=== PATIENT | female | born 1980 | race American Indian/Alaskan Native ===

== ENCOUNTER 2017-05-28 | Emergency (ER) | payer MEDICAID ==
[2017-05-28 00:08] VITALS: BP 142/93
== END 2017-05-28 03:15 | disposition left against medical advice (07) ==
LOC: ED
DX: N76.4 Abscess of vulva (principal); J45.909 Unspecified asthma, uncomplicated; I10 Essential (primary) hypertension; Z53.21 Procedure and treatment not carried out due to patient leaving prior to being seen by health care provider

== ENCOUNTER 2018-07-07 01:21 | Emergency (ER) | payer MEDICAID ==
[2018-07-07 03:24] LABS: HCG Qualitative,Urine Negative (Negative)
[2018-07-07 03:47] LABS: Bacteria,Urine 4+ /HPF (Negative); Bilirubin,Urine NEG (Negative); Blood,Urine SM (Negative); Color,Urine Yellow (Yellow); Mucus,Urine FEW /HPF
[2018-07-07 03:48] LABS: WBC,Urine > 182.0 /HPF (0.0-6.0)
[2018-07-07] MEDS ORDERED: ROCEPHIN/NS 1 GM/50 ML 1 GM/50 ML BAG IV ONE (05:44)
[2018-07-07] MEDS ORDERED: NACL 0.9% 1000 ML 1,000 ML IV ONE (05:44)
[2018-07-07] MEDS ORDERED: MOTRIN PO ONE (05:44)
[2018-07-07] MEDS ORDERED: MOTRIN ONE (05:49)
[2018-07-07] MEDS ORDERED: NACL 0.9% 1000 ML 1,000 ML ONE (05:49)
--- NOTE | 2018-07-07 06:25 | Emergency Department Report ---
ED General Adult HPI - General Chief complaint: Urogenital-Female Stated complaint: LOWER ABD PAIN Time Seen by Provider: 07/07/18 05:44 Source: patient Mode of arrival: Ambulatory Limitations: No Limitations - History of Present Illness Initial comments: Patient is a 38-year-old -[place] female history of asthma and hypertension who presents for dysuria frequency and urgency for 4 days patient with current menses patient denies fevers chills no nausea vomiting dizziness no lightheadedness. symptoms exacerbated by voiding symptoms relieved by nothing. Onset/Timin -: days(s) Location: abdomen Radiation: other (super pubic ) Severity scale (0 -10): 4 Quality: other (stinging burning ) Consistency: intermittent Improves with: none Worsens with: other (voiding ) Associated Symptoms: denies: fever/chills, nausea/vomiting Treatments Prior to Arrival: none - Related Data Previous Rx's Medication Instructions Recorded Last Taken Type methOCARBAMOL [Robaxin TAB] 500 mg PO Q6H PRN #15 tablet 03/08/16 Unknown Rx traMADol [Ultram] 50 mg PO Q6HR PRN #15 tablet 03/08/16 Unknown Rx Nitrofurantoin Monohyd/M-Cryst 100 mg PO BID #14 capsule 07/07/18 Unknown Rx [Macrobid 100 mg Capsule] Allergies Allergy/AdvReac Type Severity Reaction Status Date / Time No Known Allergies Allergy Verified 07/07/18 05:54 ED Review of Systems ROS: Stated complaint: LOWER ABD PAIN Other details as noted in HPI Constitutional: denies: chills, fever Eyes: denies: eye pain, eye discharge, vision change ENT: denies: ear pain, throat pain Respiratory: denies: cough, shortness of breath, wheezing Cardiovascular: denies: chest pain, palpitations Endocrine: no symptoms reported Gastrointestinal: abdominal pain (superpubic). denies: nausea, vomiting, diarrhea, constipation, hematemesis, melena, hematochezia Genitourinary: urgency, dysuria, frequency. denies: hematuria, discharge, abnormal menses, dyspareunia Musculoskeletal: denies: back pain, joint swelling, arthralgia Skin: denies: rash, lesions Neurological: denies: headache, weakness, paresthesias Psychiatric: denies: anxiety, depression Hematological/Lymphatic: denies: easy bleeding, easy bruising ED Past Medical Hx - Past Medical History Hx Hypertension: Yes Hx Asthma: Yes Additional medical history: OBESITY - Surgical History Past Surgical History?: Yes Additional Surgical History: C SECTION X 3 - Social History Smoking Status: Never Smoker Substance Use Type: None - Medications Home Medications: Home Medications Medication Instructions Recorded Confirmed Last Taken Type methOCARBAMOL [Robaxin TAB] 500 mg PO Q6H PRN #15 tablet 03/08/16 Unknown Rx traMADol [Ultram] 50 mg PO Q6HR PRN #15 tablet 03/08/16 Unknown Rx Nitrofurantoin Monohyd/M-Cryst 100 mg PO BID #14 capsule 07/07/18 Unknown Rx [Macrobid 100 mg Capsule] ED Physical Exam - General Limitations: No Limitations General appearance: alert, in no apparent distress - Head Head exam: Present: atraumatic, normocephalic - Eye Eye exam: Present: normal appearance - ENT ENT exam: Present: mucous membranes moist - Neck Neck exam: Present: normal inspection - Respiratory Respiratory exam: Present: normal lung sounds bilaterally. Absent: respiratory distress - Cardiovascular Cardiovascular Exam: Present: regular rate, normal rhythm. Absent: systolic murmur, diastolic murmur, rubs, gallop - GI/Abdominal GI/Abdominal exam: Present: soft, normal bowel sounds - Rectal Rectal exam: Present: deferred - Extremities Exam Extremities exam: Present: normal inspection, full ROM, normal capillary refill - Back Exam Back exam: Present: normal inspection, full ROM. Absent: CVA tenderness (R), CVA tenderness (L), muscle spasm, paraspinal tenderness, vertebral tenderness, rash noted - Neurological Exam Neurological exam: Present: alert, oriented X3, CN II-XII intact, normal gait, reflexes normal - Psychiatric Psychiatric exam: Present: normal affect, normal mood - Skin Skin exam: Present: warm, dry, intact, normal color. Absent: rash ED Course Vital Signs 07/07/18 07/07/18 07/07/18 01:46 06:19 06:46 Temperature 99.7 F H 98.8 F Pulse Rate 115 H 100 H Respiratory 16 18 18 Rate Blood Pressure 154/90 O2 Sat by Pulse 100 99 Oximetry ED Medical Decision Making - Medical Decision Making Patient is a 38-year-old -Sy[place] female history of hypertension and asthma patient presents with lower abdominal and suprapubic pain 3 days with dysuria frequency urgency patient with current menses no history of fibroids or ovarian cyst patient denies fevers chills no nausea vomiting no back pain no dizziness or lightheadedness O history of renal stones patient denies hematuria there is no flank pain UA noted for leukocytes WBCs and bacteria red blood cells this patient is with current menses patient denies possibility for STD . Been no abdominal pain no diarrhea no vaginal concerns patient refuses CT rule out pyelonephritis no longer wishes labs is no history of diabetes NOTED FOR HEART RATE 115 no fever patient states his normal occurrence when she doesn't take her blood pressure medicine lisinopril and hydrochlorothiazide patient to take medications upon arrival to home since he is on plan: Discussed in depth with patient concern for other etiology for heart rate dysuria including renal stones hyperglycemia patient verbalized understanding of same however prefers to PCP for evaluation treatment just the plan now normal saline 1 L bolus and Rocephin 1 g IV piggyback with DC with DC to home with prescription for Macrobid patient will follow up with PCP in 2-3 days or return to ED should symptoms worsen. l Critical care attestation.: If time is entered above; I have spent that time in minutes in the direct care of this critically ill patient, excluding procedure time. ED Disposition Clinical Impression: UTI (urinary tract infection) Qualifiers: Urinary tract infection type: acute cystitis Hematuria presence: without hematuria Qualified Code(s): N30.00 - Acute cystitis without hematuria Disposition: DC-01 TO HOME OR SELFCARE Is pt being admited?: No Does the pt Need Aspirin: No Condition: Good Instructions: Urinary Tract Infection in Women (ED) Prescriptions: Nitrofurantoin Monohyd/M-Cryst [Macrobid 100 mg Capsule] 100 mg PO BID #14 capsule Referrals: PRIMARY CARE, [Primary Care Provider] - 3-5 Days Forms: Work/School Release Form(ED) Time of Disposition: 07:10
[2018-07-07 07:47] VITALS: BP 146/85
== END 2018-07-07 08:01 | disposition home or self-care (01) ==
LOC: ED 01:21
DX: N39.0 Urinary tract infection, site not specified (principal); I10 Essential (primary) hypertension; J45.909 Unspecified asthma, uncomplicated
CPT/HCPCS: 81001; 81025; 96365; 99283; J0696; J7030